=== PATIENT | female | born 1940 | race Caucasian/White ===

== ENCOUNTER → 2020-07-13 | Outpatient (CLI) | payer MEDICARE ==
[~2020-07-13] MED LIST: AMIODARONE HCL200 MG PO; ASPIRIN 325MG325 MG PO; ASPIRIN325 MG PO; ATORVASTATIN CA10 MG PO; BACTROBAN CREAM15 GM TOP; BYSTOLIC10 MG PO; CALCIUM500 MG PO; CATAPRES 0.1MG0.1 MG PO; CILOSTAZOL100 MG PO; CLOPIDOGREL75 MG PO; DIOVAN320 MG PO; ESCITALOPRAM PO; LEVAQUIN500 MG PO; LEVOTHYROXINE100 MC2 PO; LEVOTHYROXINE88 MC1 PO; LEXAPRO10 MG PO; LIPITOR TAB 1010 MG PO; MAXZIDE 37.5 M1 EACH PO; NORVASC 5 MG TAB5 MG PO; PLETAL 100 MG100 MG PO; PREDNISONE10 MG PO; PRILOSEC OTC20 MG PO; PROTONIX40 MG PO; SYNTHROID 25 M25 MCG PO; VENTOLIN/PROVE0.5 ML INH; VIT D PO; VITAMIN D250000 UNIT PO; ZANTAC150 MG PO
[2020-07-13 11:43] LABS: HEMOGLOBIN 6.1 gm/dl (12.3-15.3)
[2020-07-13 14:55] LABS: HEMOGLOBIN 7.2 gm/dl (12.3-15.3)
== END ==
LOC: OPSV 10:49
PROVIDERS: Nurse Practitioner Family
DX: D64.9 Anemia, unspecified (principal)
CPT/HCPCS: 36415; 36430; 85014; 85018; 86850; 86900; 86901; 86920; P9016

== ENCOUNTER → 2020-07-14 | Outpatient (CLI) | payer MEDICARE ==
[2020-07-14 11:32] LABS: HEMOGLOBIN 8.7 gm/dl (12.3-15.3)
== END ==
LOC: OPSV 08:00
PROVIDERS: Internal Medicine
DX: D64.9 Anemia, unspecified (principal)
CPT/HCPCS: 36415; 36430; 85014; 85018; J7050; P9016

== ENCOUNTER → 2020-08-26 | Day surgery (SDC) | payer MEDICARE | END | disposition home or self-care (01) | LOC: OR 07:22 | DX: D64.9 Anemia, unspecified (principal); K57.30 Diverticulosis of large intestine without perforation or abscess without bleeding; K29.70 Gastritis, unspecified, without bleeding; K44.9 Diaphragmatic hernia without obstruction or gangrene; K63.89 Other specified diseases of intestine; K21.9 Gastro-esophageal reflux disease without esophagitis; F41.9 Anxiety disorder, unspecified; I10 Essential (primary) hypertension; J44.9 Chronic obstructive pulmonary disease, unspecified; I25.10 Atherosclerotic heart disease of native coronary artery without angina pectoris; E78.5 Hyperlipidemia, unspecified; E03.9 Hypothyroidism, unspecified; M81.0 Age-related osteoporosis without current pathological fracture; I73.9 Peripheral vascular disease, unspecified; Z87.891 Personal history of nicotine dependence; Z88.5 Allergy status to narcotic agent; Z88.0 Allergy status to penicillin; Z88.1 Allergy status to other antibiotic agents; Z79.82 Long term (current) use of aspirin; Z79.02 Long term (current) use of antithrombotics/antiplatelets; Z79.899 Other long term (current) drug therapy | CPT/HCPCS: J2405; J2704; J7030 ==

== ENCOUNTER → 2020-09-12 | Outpatient (CLI) | payer MEDICARE ==
[2020-09-12 09:01] LABS: HEMOGLOBIN 8.7 gm/dl (12.3-15.3); RED BLOOD COUNT 3.17 M/UL (4.00-5.10); WHITE BLOOD COUNT 6.8 K/UL (4.5-11.0)
== END ==
LOC: LAB 08:32
PROVIDERS: Nurse Practitioner Family
DX: D64.9 Anemia, unspecified (principal)
CPT/HCPCS: 36415; 85025

== ENCOUNTER 2020-09-13 10:07 | Inpatient (IN) | payer MEDICARE ==
[~2020-09-13] VITALS: Ht 160 cm; Wt 57.6 kg
[~2020-09-13 10:07] MED LIST changes: -LEVOTHYROXINE100 MC2 PO; -LEXAPRO10 MG PO; -PRILOSEC OTC20 MG PO; -PROTONIX40 MG PO
[2020-09-13 12:15] LABS: HEMOGLOBIN 8.8 gm/dl (12.3-15.3); RED BLOOD COUNT 3.23 M/UL (4.00-5.10); WHITE BLOOD COUNT 9.7 K/UL (4.5-11.0)
[2020-09-13] MEDS ORDERED: PRILOSEC OTC20 MG PO (20:36)
[2020-09-13] MEDS ORDERED: PROTONIX40 MG PO (20:37)
[2020-09-13] MEDS ORDERED: LEXAPRO10 MG PO (22:34)
[2020-09-13] MEDS ORDERED: BYSTOLIC10 MG PO (22:39)
[2020-09-13] MEDS ORDERED: LEVOTHYROXINE100 MC2 PO (22:41)
[2020-09-14 06:29] LABS: HEMOGLOBIN 7.9 gm/dl (12.3-15.3); RED BLOOD COUNT 2.94 M/UL (4.00-5.10)
[2020-09-14 06:30] LABS: WHITE BLOOD COUNT 6.8 K/UL (4.5-11.0)
--- NOTE | 2020-09-14 16:19 | NUR ---
NOTIFIED OPAL (PATIENT DAUGHTER) OF CHANGE IN PATIENT STATUS. INFORMED THAT THE PATIENT HAD A CHANGE IN CARDIAC STATUS REQUIRING CPR AND INTUBATION. ALSO INFORMED OPAL PATIENT IS BEING MOVED TO ICU.
[2020-09-14 16:50] LABS: HEMOGLOBIN 8.7 gm/dl (12.3-15.3); RED BLOOD COUNT 3.22 M/UL (4.00-5.10)
--- NOTE | 2020-09-14 17:24 | NUR ---
1552 I WAS IN ROOM WITH PATIENT HAMZAH BONDS TO SIGN CONSENT FOR BLOOD ADMINISTRATION. PT REQUESTED TO WALK TO THE BATHROOM TO VOID "BEFORE BEING HOOKED UP TO THE IV PUMP FOR 3 HOURS". PT AMBULATED TO THE BATHROOM AND BACK WITH STANDBY ASSIST ONLY. SHE VOIDED AND I WALKED HER BACK TO THE BED. I ASSISTED PT BACK IN BED AND COVERED HER UP. SHE ASKED ME TO HAND HER A BOX OF TISSUES BEFORE I LEFT THE ROOM AND I DID SO. I INFORMED PATIENT THAT I HAD TO GO GET HER BLOOD FROM BLOOD BANK BUT WOULD BE BACK SOON. I WALKED AROUND THE CORNER TO MY DESK AND SAT DOWN TO SIGN THE DOCUMENTS. TELE CALLED AT 1556 AND SAID PT HR WAS IN 40'S AND THEN SAID SHE WENT INTO V-TACH. I RAN BACK TO PT ROOM AND PT WAS IN BED WITH MOUTH OPEN AND NO RESPONSE WHEN I STERNAL RUBBED HER. I IMMEDIATELY CALLED A CODE BLUE AND YELLED FOR THE CRASH CART. HIGH QUALITY CPR WAS STARTED. PADS PLACED ON PATIENT AND WE SHOCKED HER AT 150 JOULES X1. CPR RESUMED. ER DOC PRESENT IN ROOM TO INTUBATE. RHYTHM CHECK Q2 MINUTES NOTING PEA. 1606 PHYTHM CHECK NOTED PT HAD HR IN 70'S. ORGANIZED RHYTHM PER BEDSIDE MONITOR. PALPABLE PULSES NOTED. ETCO2 OF 46 AT THIS TIME. PT TRANSFERRED TO ICU. JENNIFER VARELA NOTIFIED DR BURCH AND WILLIAM LOVE NOTIFIED JOHN.
--- NOTE | 2020-09-14 18:25 | NUR ---
PT ARRIVED ON UNIT S/P CODE BLUE AT 1625. PT PLACED ON BEDSIDE MONITORING EQUIPMENT AND VENTILATOR AT BEDSIDE. AT 1647 PT PROCEEDED TO CODE AGAIN. DR. BURCH WAS ALREADY AT THE BEDSIDE AND PATIENT WAS CODED PER ACLS PROTOCOL. SEE CODE SHEET FOR DETAILS.
== END 2020-09-14 17:14 | disposition expired | DRG 208 ==
LOC: ER1 10:07 → CDU 19:47 → M/S 21:55 → CCU 09-14 16:16
PROVIDERS: Physician Assistant; ADMIT Internal Medicine
PROC: 5A1935Z Respiratory Ventilation, Less than 24 Consecutive Hours (ICD-10-PCS; principal; 2020-09-14)
PROC: 0BH17EZ Insertion of Endotracheal Airway into Trachea, Via Natural or Artificial Opening (ICD-10-PCS; 2020-09-14)
PROC: 5A12012 Performance of Cardiac Output, Single, Manual (ICD-10-PCS; 2020-09-14)
PROC: 3E033XZ Introduction of Vasopressor into Peripheral Vein, Percutaneous Approach (ICD-10-PCS; 2020-09-14)
PROC: 30233N1 Transfusion of Nonautologous Red Blood Cells into Peripheral Vein, Percutaneous Approach (ICD-10-PCS; 2020-09-14)
PROC: B24BZZ4 Ultrasonography of Heart with Aorta, Transesophageal (ICD-10-PCS; 2020-09-14)
PROC: 5A2204Z Restoration of Cardiac Rhythm, Single (ICD-10-PCS; 2020-09-14)
DX: J96.01 Acute respiratory failure with hypoxia (principal); I50.23 Acute on chronic systolic (congestive) heart failure; I46.2 Cardiac arrest due to underlying cardiac condition; I49.01 Ventricular fibrillation; K25.4 Chronic or unspecified gastric ulcer with hemorrhage; N30.00 Acute cystitis without hematuria; I47.2 Ventricular tachycardia; N17.9 Acute kidney failure, unspecified; Z20.822 Contact with and (suspected) exposure to COVID-19; I10 Essential (primary) hypertension; K29.00 Acute gastritis without bleeding; I95.89 Other hypotension; D63.8 Anemia in other chronic diseases classified elsewhere; I25.10 Atherosclerotic heart disease of native coronary artery without angina pectoris; Z79.01 Long term (current) use of anticoagulants; Z95.2 Presence of prosthetic heart valve; Z88.0 Allergy status to penicillin; Z88.2 Allergy status to sulfonamides; Z90.49 Acquired absence of other specified parts of digestive tract
CPT/HCPCS: ECHO; 31500; 36415; 36430; 36600; 71045; 80048; 80053; 81001; 82150; 82550; 82553; 82803; 82962; 83690; 83735; 83874; 83880; 84100; 84484; 85025; 85027; 85379; 85610; 86850; 86900; 86901; 86920; 92950; 93005; 93306; 94002; 94664; 94760; 96374; 96375; 99285; J0171; J0461; J1940; J1956; J2370; J2405; J7030; J7050; P9016; Q9965; U0002